=== PATIENT | male | born 1990 | race Caucasian/White ===

== ENCOUNTER → 2018-03-04 | Outpatient (CLI) | payer OTHER ==
--- NOTE | 2018-03-20 06:58 | REP ---
Clinical: Trauma with prior injury Technique: AP, lateral, bilateral oblique views of the right hand. Note: No prior examination for comparison. Findings: No acute fracture or dislocation. Skeletal structures, joint spaces, and surrounding soft tissues appear normal. Old healed fifth metacarpal bone fracture cannot be excluded. No subcutaneous emphysema or radiodense foreign body. Impression: No acute fracture or dislocation. Electronically Signed by Felipe Collado MD 03/20/2018 06:49 A
== END ==
LOC: M RAD 09:29
PROVIDERS: ATTEND Surgery
DX: S69.90XA Unspecified injury of unspecified wrist, hand and finger(s), initial encounter (principal); X58.XXXA Exposure to other specified factors, initial encounter; Y92.9 Unspecified place or not applicable